=== PATIENT | female | born 1985 | race Caucasian/White ===

== ENCOUNTER 2021-10-29 11:08 | Emergency (ER) | payer OTHER ==
[~2021-10-29] VITALS: Ht 162.6 cm; Wt 83.0 kg
[2021-10-29 12:15] VITALS: BP 114/72
== END 2021-10-29 13:54 | disposition home or self-care (01) ==
LOC: ER 11:08
DX: U07.1 COVID-19 (principal); F12.90 Cannabis use, unspecified, uncomplicated; Z88.0 Allergy status to penicillin